=== PATIENT | female | born 1960 ===

== ENCOUNTER 2023-11-04 10:24 | Outpatient (CLI) | payer MEDICARE, SELFPAY ==
--- NOTE | ~2023-11-04 | MR_ITS ---
EXAMINATION: MR elbow RT wo con DATE: 11/04/2023 12:03 INDICATION: Right elbow pain TECHNIQUE: Magnetic resonance imaging (MRI) of the right elbow was performed without intravenous cont rast. Sequences included coronal, axial, and sagittal PD-weighted FS FSE and coronal, axial, and sagi ttal PD-weighted FSE. COMPARISON: None FINDINGS: Osseous/other: Normal alignment. Normal marrow signal with no marrow edema, fracture, osteochondral lesion or patho logic marrow replacing process. Mild osteoarthritis with region is mild nonuniform partial thickness cartilage loss with smooth chondral surface most prominent at the central radial head. Isolated sever e fatty atrophy of the supinator muscle. Remaining muscles innervated by the posterior interosseous n erve attending deep branch of the radial nerve remain normal. . The neurovascular structures appear u nremarkable with no abnormal masses or other impinging lesions. Tendons: Triceps, biceps brachii and brachialis tendons are normal. Common flexor tendon wad is normal. Mild tendinopathy and tiny intrasubstance ganglion cyst at the lateral epicondylar origin of the common ex tensor tendon wad. Ligaments: The medial and lateral collateral ligament complexes are normal. Cubital tunnel: Cubital tunnel is unremarkable with normal signal and caliber of the ulnar nerve. Fluid: Physiologic amount of fluid the elbow joint. IMPRESSION: 1. Nonspecific isolated severe atrophy of the supinator muscle which is of indeterminate etiology wit h no evident atrophy or abnormal muscle signal of the remaining musculature of the visualized distal upper arm and proximal forearm. 2. Mild osteoarthritis at the right elbow. 3. Mild tendinopathy without tear at the lateral epicondylar origin of the common extensor tendon wad . Reviewed, dictated and finalized at location A. IMPRESSION: 1. Nonspecific isolated severe atrophy of the supinator muscle which is of inde terminate etiology with no evident atrophy or abnormal muscle signal of the rem aining musculature of the visualized distal upper arm and proximal forearm. 2. Mild osteoarthritis at the right elbow. 3. Mild tendinopathy without tear at the lateral epicondylar origin of the comm on extensor tendon wad.
== END 2023-11-04 10:25 ==
LOC: GOSHIMG 10:26
PROVIDERS: PCP Physician Assistant; Visit Provider Physician Assistant
DX: M19.021 Primary osteoarthritis, right elbow (principal)
CPT/HCPCS: 73221

== ENCOUNTER 2023-12-25 09:25 | Outpatient (CLI) | payer MEDICARE, SELFPAY ==
--- NOTE | ~2023-12-25 | MR_ITS ---
EXAMINATION: MR cervical spine wo con DATE: 12/25/2023 10:41 INDICATION: Numbness and tingling of right upper extremity. TECHNIQUE: Magnetic resonance imaging (MRI) of the cervical spine was performed without intravenous c ontrast. COMPARISON: Cervical spine MRI 06/07/2010 FINDINGS: There is 5 degrees dextrocurvature of cervical spine. There is kyphosis of cervical spine. There is mild chronic anterior wedging of C4 and C7 vertebral bodies. There is mildly decreased disc height at C4-C5 and severely decreased disc height at C5-C6 and C6-C7. The spinal cord signal intensi ty is normal. The following disc levels are specifically discussed: C2-C3: The disc does not extend beyond the endplate margin. There is no uncovertebral joint osteoarth ritis. There is moderate right and severe left facet joint osteoarthritis. There is mild left neural foraminal stenosis. There is no central canal stenosis. C3-C4: The disc does not extend beyond the endplate margin. There is mild right and moderate left unc overtebral joint osteoarthritis. There is moderate right facet joint osteoarthritis. There is ankylos is of left facet joint with severe hypertrophy. There is mild right and moderate left neural foramina l stenosis. There is no central canal stenosis. C4-C5: The disc is bulging. There is severe bilateral uncovertebral joint osteoarthritis. There is se arpita bilateral facet joint osteoarthritis. There is severe bilateral neural foraminal stenosis. There is mild central canal stenosis. C5-C6: The disc is bulging. There is severe bilateral uncovertebral joint osteoarthritis. There is mi ld bilateral facet joint osteoarthritis. There is severe right and moderate left neural foraminal quinn nosis. There is mild central canal stenosis. C6-C7: The disc is bulging. There is severe bilateral uncovertebral joint osteoarthritis. There is mi ld bilateral facet joint osteoarthritis. There is severe bilateral neural foraminal stenosis. There i s moderate central canal stenosis. C7-T1: There is a central protrusion. There is mild bilateral uncovertebral joint osteoarthritis. The re is moderate right and severe left facet joint osteoarthritis. There is mild bilateral neural primitivo inal stenosis. There is mild central canal stenosis. IMPRESSION: 1. Severe cervical spondylosis, worsened from 06/07/2010. Reviewed, dictated and finalized at location A.
--- NOTE | ~2023-12-25 | MR_ITS ---
EXAMINATION: MR chest wo/w con DATE: 12/25/2023 10:57 INDICATION: Numbness and tingling in right upper extremity. TECHNIQUE: Magnetic resonance imaging (MRI) of the chest was performed without and with 15 mL intrave nous contrast. COMPARISON: None. FINDINGS: There is 8 degrees levocurvature of upper thoracic spine. There is severe cervical spondylo sis and moderate thoracic spondylosis. The brachial plexus is normal on either side. There is no abno rmal mass. The musculature is normal. IMPRESSION: 1. Normal brachial plexus. Reviewed, dictated and finalized at location A. IMPRESSION: 1. Normal brachial plexus.
== END 2023-12-25 09:26 | disposition home or self-care (01) ==
LOC: MICIMG 09:26
DX: M47.812 Spondylosis without myelopathy or radiculopathy, cervical region (principal); R20.0 Anesthesia of skin; R20.2 Paresthesia of skin
CPT/HCPCS: 71552; 72141; A9577